=== PATIENT | male | born 1970 | race Caucasian/White ===

== ENCOUNTER → 2024-01-10 07:34 | Outpatient (REF) | payer BC, SELFPAY ==
[2024-01-10 09:19] LABS: % Basophils 0.7 % (0-2); % Eosinophils 1.5 % (0-6); % Immature Granulocytes 0.2 % (0-0.5); % Lymphocytes 46.8 % (20.5-51.1); % Monocytes 8.3 % (1.7-9.3); % Neutrophils 42.5 % (42.2-75.2); Absolute Eosinophils 0.1 10^3/uL (0-0.7); Absolute Lymphocytes 2.8 10^3/uL (1.2-3.4); Absolute Monocytes 0.5 10^3/uL (0.1-0.6); Absolute Neutrophils 2.5 10^3/uL (1.4-6.5); Hematocrit 46.3 % (39.0-52.0); Hemoglobin 15.2 g/dL (13.0-18.0); Mean Corp Hgb Conc. 32.8 g/dL (33.0-37.0); Mean Corpuscular Hgb 30.6 pg (27.0-31.0); Mean Corpuscular Volume 93.3 fL (80.0-94.0); Mean Platelet Volume 10.5 fL (7.4-10.4); Nucleated Red Blood Cells % 0 % (-); Platelet Count 251 10^3/uL (130-400); Red Blood Cell Count 4.96 10^6/uL (4.70-6.10); Red Cell Dist. Width 11.9 % (11.5-14.5); White Blood Cell Count 5.9 10^3/uL (4.8-10.8)
[2024-01-10 10:14] LABS: ALT (SGPT) 23 U/L (0-50); AST (SGOT) 27 U/L (17-59); Albumin 4.7 g/dl (3.5-5.0); Alkaline Phosphatase 46 U/L (38-126); Blood Urea Nitrogen 20 mg/dl (9-20); Calcium 9.9 mg/dl (8.4-10.2); Carbon Dioxide 30 mmol/L (22-30); Chloride 100 mmol/L (98-107); Glucose 90 mg/dl (70-99); HDL Cholesterol 73 mg/dl; LDL Cholesterol, Calculated 166 mg/dl; Potassium 4.6 mmol/L (3.5-5.1); Sodium 139 mmol/L (135-145); Total Bilirubin 0.8 mg/dl (0.2-1.3); Total Cholesterol 265 mg/dl (50-199); Total Protein 7.3 g/dl (6.3-8.2); Triglyceride 132 mg/dl (10-149); Very Low Density Lipoprotein 26 mg/dl (0-30); eGFR > 60.00
[2024-01-10 10:22] LABS: NT-proBNP 84.3 pg/ml
[2024-01-10 10:42] LABS: TSH Reflex To Free T4 2.85 uIU/ml (0.47-4.68)
== END ==
LOC: RCS 07:34
PROVIDERS: ATTENDING PHYSICIAN Internal Medicine Cardiovascular Disease; FAMILY PHYSICIAN Family Medicine
DX: I44.7 Left bundle-branch block, unspecified (principal); I42.8 Other cardiomyopathies; I42.9 Cardiomyopathy, unspecified
CPT/HCPCS: 36415; 80053; 80061; 83880; 84443; 85025; 93306

== ENCOUNTER → 2024-03-17 13:17 | Outpatient (REF) | payer BC, SELFPAY ==
[2024-03-17 15:06] LABS: PSA, Total - Screen 2.81 ng/ml (0.0-4.0)
== END ==
LOC: REG 13:17
PROVIDERS: ATTENDING PHYSICIAN Student in an Organized Health Care Education/Training Program
DX: Z00.00 Encounter for general adult medical examination without abnormal findings (principal); F32.A Depression, unspecified; K50.80 Crohn's disease of both small and large intestine without complications; Z12.11 Encounter for screening for malignant neoplasm of colon; Z12.12 Encounter for screening for malignant neoplasm of rectum
CPT/HCPCS: 36415; G0103

== ENCOUNTER → 2025-01-06 07:51 | Outpatient (REF) | payer BC, SELFPAY ==
[2025-01-06 09:24] LABS: % Basophils 0.9 % (0-2); % Eosinophils 1.2 % (0-6); % Immature Granulocytes 0.2 % (0-0.5); % Lymphocytes 42.2 % (20.5-51.1); % Monocytes 7.3 % (1.7-9.3); % Neutrophils 48.2 % (42.2-75.2); Absolute Basophils 0.1 10^3/uL (0-0.2); Absolute Eosinophils 0.1 10^3/uL (0-0.7); Absolute Lymphocytes 2.4 10^3/uL (1.2-3.4); Absolute Monocytes 0.4 10^3/uL (0.1-0.6); Absolute Neutrophils 2.8 10^3/uL (1.4-6.5); Hematocrit 46.4 % (39.0-52.0); Hemoglobin 15.7 g/dL (13.0-18.0); Mean Corp Hgb Conc. 33.8 g/dL (33.0-37.0); Mean Corpuscular Hgb 30.8 pg (27.0-31.0); Mean Corpuscular Volume 91.2 fL (80.0-94.0); Mean Platelet Volume 10.4 fL (7.4-10.4); Nucleated Red Blood Cells % 0 % (-); Platelet Count 258 10^3/uL (130-400); Red Blood Cell Count 5.09 10^6/uL (4.70-6.10); Red Cell Dist. Width 12.1 % (11.5-14.5); Reticulocyte Count 1.2 % (0.4-2.8); White Blood Cell Count 5.8 10^3/uL (4.8-10.8)
[2025-01-06 10:13] LABS: ALT (SGPT) 36 U/L (0-50); AST (SGOT) 34 U/L (17-59); Alkaline Phosphatase 55 U/L (38-126); Blood Urea Nitrogen 15 mg/dl (9-20); Calcium 10.3 mg/dl (8.4-10.2); Carbon Dioxide 29 mmol/L (22-30); Chloride 103 mmol/L (98-107); Glucose 94 mg/dl (70-99); Iron 123 ug/dl (49-181); Magnesium 2.1 mg/dl (1.6-2.3); Potassium 5.5 mmol/L (3.5-5.1); Sodium 141 mmol/L (135-145); Total Bilirubin 0.8 mg/dl (0.2-1.3); Total Protein 7.7 g/dl (6.3-8.2); eGFR > 60.00
[2025-01-06 10:22] LABS: Percent Saturation 41 % (20-50); Total Iron Binding Capacity 299 ug/dl (261-462)
[2025-01-06 10:44] LABS: C-Reactive Protein < 5.00 mg/L (0.0-10.00)
[2025-01-06 11:01] LABS: Vitamin B12 533 pg/ml (239-931)
[2025-01-06 11:02] LABS: Vitamin D, 25-OH*** 35.5 ng/mL (30-80)
[2025-01-06 11:06] LABS: Erythrocyte Sed Rate 10 mm/hour (0-20)
== END ==
LOC: REG 07:51
PROVIDERS: ATTENDING PHYSICIAN Internal Medicine Gastroenterology; FAMILY PHYSICIAN Family Medicine; REFERRING PHYSICIAN Physician Assistant Medical
DX: R53.83 Other fatigue (principal); D64.9 Anemia, unspecified; D50.9 Iron deficiency anemia, unspecified; D51.9 Vitamin B12 deficiency anemia, unspecified; E55.9 Vitamin D deficiency, unspecified; R19.01 Right upper quadrant abdominal swelling, mass and lump; R19.7 Diarrhea, unspecified
CPT/HCPCS: 36415; 80053; 82306; 82607; 82728; 83540; 83550; 83735; 85025; 85045; 85652; 86140

== ENCOUNTER 2025-04-13 16:00 | Emergency (ER) | payer BC, SELFPAY ==
[2025-04-13 16:10] VITALS: BP 126/88
[2025-04-13 16:17] LABS: Glucose - Point of Care 113 mg/dl (70-99)
[2025-04-13 16:23] LABS: Hematocrit 43.9 % (39.0-52.0); Hemoglobin 15.1 g/dL (13.0-18.0); Mean Corp Hgb Conc. 34.4 g/dL (33.0-37.0); Mean Corpuscular Volume 89.2 fL (80.0-94.0); Nucleated Red Blood Cells % 0 % (-); Platelet Count 244 10^3/uL (130-400); Red Cell Dist. Width 11.9 % (11.5-14.5)
[2025-04-13 16:36] LABS: ALT (SGPT) 21 U/L (0-50); AST (SGOT) 24 U/L (17-59); Albumin 4.8 g/dl (3.5-5.0); Alkaline Phosphatase 48 U/L (38-126); Blood Urea Nitrogen 16 mg/dl (9-20); Calcium 9.0 mg/dl (8.4-10.2); Carbon Dioxide 23 mmol/L (22-30); Chloride 107 mmol/L (98-107); Glucose 122 mg/dl (70-99); Potassium 3.8 mmol/L (3.5-5.1); Sodium 139 mmol/L (135-145); Total Protein 7.2 g/dl (6.3-8.2); eGFR > 60.00
[2025-04-13 16:48] LABS: Troponin I < 0.012 ng/ml
--- NOTE | 2025-04-13 17:37 | ED.GENMED ---
History of Present Illness
General
Chief Complaint: Weakness
Source: patient
Exam Limitations: none
Time Seen by Provider: 04/13/25 17:37
History of Present Illness
History of Present Illness:
55yoM with a history of cardiomyopathy with last EF 45%, LBBB, and Crohn's disease presenting for evaluation of dizziness. Patient reports intermittent episodes of dizziness for the past few months. He typically gets the dizziness every 2 weeks or
so. Episodes tend to occur while resting at work and do not occur with activity. He was at work today on a phone call when he started to feel faint and lightheaded. Patient went home early because he was not feeling well. Symptoms gradually
resolved and he developed a second episode of lightheadedness around 3:30 PM this evening again while he was sitting. He felt short of breath during second episode and had some sweating. He also felt confused transiently. These episodes can last
for several hours at a time. No associated seizure-like activity, syncope, chest pain, palpitations, incontinence, headache, vertiginous symptoms. 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
Past History
Past History
ED Past Medical History: Other (Crohn's disease, nonischemic cardiomyopathy, left bundle branch block)
ED Past Surgical History: None
Social History
Tobacco: Non-smoker
Alcohol: Occasional
Family History
Family History: CAD and Other (Alcoholism)
Phy Exam
General Physical Exam
General Presentation: well appearing and no apparent distress
General age: appears stated age
General Skin: warm and dry
General Habitus: normal
General Mental: alert
ENT Exam
ENT Exam: normocephalic
Cardiovascular Exam
Cardiovascular Exam: regular rate/rhythm, no edema and no murmur
Pulmonary Exam
Pulmonary Exam: lungs clear, no respiratory distress, no rales, no crackles, no rhonchi and no wheezing
Neurological Exam
Neurological Exam: alert and no motor deficits
[place] Coma Scale
Eye Opening: Spontaneous
Verbal Response: Oriented
Motor Response: Obeys Commands
GCS Total Score: 15
Skin Exam
Skin Exam: normal color and warm/dry
Psychiatric Exam
Psychiatric Exam: normal mood/affect
Course
Orders/Labs/Results
Orders:
Orders
04/13/25 16:01
EKG [Electrocardiogram (*1)] Urgent
Reason for Study: Vertigo / Dizzy
04/13/25 16:02
EKG- Treatment ONCE
04/13/25 16:17
Complete Blood Count/With Diff Urgent
Comprehensive Metabolic Panel Urgent
TSH Urgent
Comment: ADD ON
Troponin I Urgent
04/13/25 16:[address] [CT Head W/o Iv Contrast] Urgent
Comment:
Reason For Exam: confusion
04/13/25 18:00
Add On- LAB Urgent
Tests Added?: TSH
Cardiac Monitoring- Treatment ONCE
04/13/25 18:01
EKG- Treatment ONCE
04/13/25 18:14
D-Dimer Urgent
04/13/25 18:44
CR Chest - 2 Views Urgent
Comment:
Reason For Exam: SOB
04/13/25 19:00
Electrocardiogram (*1) Urgent
Reason for Study: Shortness of Breath
04/13/25 19:03
Troponin I Urgent
Abnormal Lab Results
04/13/25 04/13/25
16:16 16:17
Glucose 122 H mg/dl
(70-99)
POC Glucose 113 H mg/dl
(70-99)
04/13/25 16:17
04/13/25 16:17
Vital Signs
Initial and Last Documented VS:
Initial Vital Signs
Temp Pulse Resp BP Pulse Ox
97.8 F 82 16 126/88 97
04/13/25 16:10 04/13/25 16:10 04/13/25 16:10 04/13/25 16:10 04/13/25 16:10
Last Documented Vital Signs
Temp Pulse Resp BP Pulse Ox
97.8 F 59 20 114/88 96
04/13/25 16:10 04/13/25 19:45 04/13/25 19:45 04/13/25 20:36 04/13/25 20:45
MDM/Problems Addressed
Differential Diagnosis Includes:
55yoM here with intermittent episodes of lightheadedness x several months. Two episodes today. Was feeling SOB earlier and felt confused. Symptoms now resolved. He is A&O on exam with stable vital signs. Differential diagnosis includes: arrhythmia,
dehydration, ACS, PE
Initial ED plan: Workup initiated in triage. EKG shows a LBBB which is chronic and troponin WNL. Will check D-dimer, TSH, repeat troponin/EKG, CT head, and monitor on telemetry.
*Pulse Oximetry
SaO2: 93
Oxygen Mode of Delivery: Room air
Patient hypoxic: no (96%)
*EKG
Interpreted by ED Provider?: Yes
EKG Intrepretation Date: 04/13/25
Heart Rate: 68
Rate: normal
Rhythm: sinus
[place]: normal axis
QRS Pattern: left bundle branch block
Ischemia: no ischemia
*Critical Care Note
Total Time (30-74mins, 75-104mins- exclusive of procedures): Not Applicable
Update Note
Update Note:
D-dimer normal making PE very unlikely. CXR added which is normal. CT head negative. Repeat troponin/EKG unchanged. No telemetry events noted. Patient remains asymptomatic on reassessment and has not had any dizziness since arrival to the ED.
Unclear etiology of symptoms. He has an appt scheduled with his engine lathe operator tomorrow. ED return precautions reviewed. Patient discharged in stable condition.
ED Attending Note
-
Portions of this chart may have been created with voice recognition software.� Occasional wrong word or��sound alike� substitutions may have occurred due to the inherent limitations of voice recognition software.
Discharge Plan
Departure
Patient Disposition: Home (Routine Discharge)
Date of Disposition: 04/13/25
Time of Disposition: 20:39
Patient with high blood pressure during this ER visit?: No
Discharge Problem:
Lightheadedness
Instructions: Dizziness in adults - ED discharge instructions
Prescriptions:
No Action
buspirone 5 MG tablet
5 mg PO BID
sucralfate [Carafate] 1 GM tablet
1 gm PO BID
famotidine 20 MG tablet
20 mg PO BID
lisinopril 2.5 MG tablet
2.5 mg PO HS
mesalamine [Pentasa] 500 MG capsule, extended release
1,000 mg PO QID
cholecalciferol (vitamin D3) 2,000 UNITS tablet
50,000 unit PO .2X WEEKLY
desvenlafaxine 100 mg tablet extended release 24 hr
100 mg PO DAILY Qty: 90 0RF
Rx Instructions:
take with food
lisinopril 2.5 mg tablet
2.5 mg PO HS Qty: 90 0RF
desvenlafaxine 50 mg tablet extended release 24 hr
50 mg PO DAILY Qty: 180 1RF
Rx Instructions:
take 2 tablets daily x 2 months, then one tablet daily
desvenlafaxine succinate 25 mg tablet extended release 24 hr
25 mg PO DAILY Qty: 30 0RF
Referrals:
Igor Paniagua MD [Family Provider, Family Practice]
Activity Restrictions/Additional Instructions:
Please follow-up with your engine lathe operator tomorrow as scheduled. Return to the ER immediately with any new or worsening symptoms.
Interventions
Interventions:
*Risk Screen - Suicide Last Done: 04/13/25 16:10
*General Assessment Last Done: 04/13/25 18:16
*Neglect/Abuse Screening Last Done: 04/13/25 16:10
*ED- Fall Risk Assessment Last Done: 04/13/25 18:16
*ED COVID-19 Vaccine History Last Done: 04/13/25 18:16
*Nursing Disposition Last Done: 04/13/25 20:53
ED- Pulmonary Assessment Last Done: 04/13/25 18:16
ED- Neurological Assessment Last Done: 04/13/25 18:16
ED- Cardiac Assessment Last Done: 04/13/25 18:16
Discharge Date and Time
Discharge Date/Time: 04/13/25 20:55
Print Language: GREEK
[2025-04-13 18:37] LABS: D-Dimer < 0.27 ug/mlFEU (0.00-0.50)
[2025-04-13 19:00] VITALS: BP 109/72
[2025-04-13 19:09] LABS: TSH 2.45 uIU/ml (0.47-4.68)
[2025-04-13 19:40] LABS: Troponin I < 0.012 ng/ml
[2025-04-13 20:36] VITALS: BP 114/88
== END 2025-04-13 20:55 | disposition home or self-care (01) ==
LOC: EMR 16:00
PROVIDERS: Physician Assistant; EMERGENCY PHYSICIAN Student in an Organized Health Care Education/Training Program; FAMILY PHYSICIAN Family Medicine
DX: R53.1 Weakness (principal); I42.9 Cardiomyopathy, unspecified; I44.7 Left bundle-branch block, unspecified; K50.90 Crohn's disease, unspecified, without complications; Z82.49 Family history of ischemic heart disease and other diseases of the circulatory system
CPT/HCPCS: 99284; 70450; 71046; 80053; 82962; 84443; 84484; 85025; 85379; 93005

== ENCOUNTER → 2025-04-27 15:05 | Outpatient (REF) | payer BC, SELFPAY ==
[2025-04-27 16:39] LABS: Cortisol, Random 4.0 ug/dl
[2025-04-27 17:14] LABS: Folate 11.2 ng/ml (2.76-20)
[2025-05-01 13:49] LABS: Vitamin B1, Whole Blood 175 nmol/L (70-180)
[2025-05-03 08:00] LABS: 5HIAA, Urine 3.3 mg/L; 5HIAA/Creatinine Ratio 2 mg/gCR (0-14); Creatinine, Urine per Volume 141 mg/dL; VMA, Urine per Volume 5.3 mg/L
== END ==
LOC: REG 15:05
PROVIDERS: ATTENDING PHYSICIAN Internal Medicine Cardiovascular Disease; FAMILY PHYSICIAN Family Medicine
DX: R42 Dizziness and giddiness (principal); R06.02 Shortness of breath; R47.81 Slurred speech
CPT/HCPCS: 36415; 82384; 82533; 82746; 83497; 84425; 84585

== ENCOUNTER → 2025-04-30 15:55 | Outpatient (REF) | payer BC, SELFPAY | LOC: RCS 15:55 | PROVIDERS: ATTENDING PHYSICIAN Physician Assistant; FAMILY PHYSICIAN Family Medicine | DX: I44.7 Left bundle-branch block, unspecified (principal); I42.8 Other cardiomyopathies; R06.02 Shortness of breath | CPT/HCPCS: 93306 ==

== ENCOUNTER → 2025-06-09 14:35 | Outpatient (REF) | payer BC, SELFPAY ==
[2025-06-09 16:53] LABS: Vitamin D, 25-OH*** 33.7 ng/mL (30-80)
[2025-06-10 16:43] LABS: Lyme Antibody Screen, EIA Negative (Negative)
== END ==
LOC: REG 14:35
PROVIDERS: ATTENDING PHYSICIAN Physician Assistant Medical; FAMILY PHYSICIAN Family Medicine; OTHER PHYSICIAN Internal Medicine Gastroenterology; REFERRING PHYSICIAN Internal Medicine Critical Care Medicine
DX: A69.23 Arthritis due to Lyme disease (principal); W57.XXXA Bitten or stung by nonvenomous insect and other nonvenomous arthropods, initial encounter; R53.83 Other fatigue; E83.19 Other disorders of iron metabolism; K50.80 Crohn's disease of both small and large intestine without complications
CPT/HCPCS: 36415; 81256; 82306; 84270; 84402; 84403; 84443; 86618; 86644; 86645; 86663; 86664; 86665; 87497

== ENCOUNTER → 2025-07-07 15:11 | Outpatient (REF) | payer BC, SELFPAY | LOC: MRI 3T 15:11 | PROVIDERS: ATTENDING PHYSICIAN Internal Medicine Cardiovascular Disease; FAMILY PHYSICIAN Student in an Organized Health Care Education/Training Program | DX: R47.81 Slurred speech (principal); R42 Dizziness and giddiness; R06.02 Shortness of breath | CPT/HCPCS: 70549; 70553; A9575 ==

== ENCOUNTER → 2025-07-21 08:07 | Outpatient (REF) | payer BC, SELFPAY ==
[2025-07-23 14:22] LABS: SSA 52 (Ro)(ENA) Ab, IgG 2 AU/mL (0-40); SSA 60 (Ro)(ENA) Ab, IgG 0 AU/mL (0-40); SSB (La)(ENA) Ab, IgG 0 AU/mL (0-40)
[2025-07-23 22:16] LABS: ANA, IgG Reflex to HEp-2 None Detected (None Detected)
== END ==
LOC: REG 08:07
PROVIDERS: ATTENDING PHYSICIAN Nurse Practitioner; FAMILY PHYSICIAN Family Medicine
DX: R53.1 Weakness (principal); R20.0 Anesthesia of skin; R20.2 Paresthesia of skin
CPT/HCPCS: 36415; 82085; 82550; 85652; 86038; 86041; 86235

== ENCOUNTER 2025-08-09 06:26 | Day surgery (SDC) | payer BC, SELFPAY | END 2025-08-09 14:21 | disposition home or self-care (01) | LOC: GI 06:26 | PROVIDERS: ATTENDING PHYSICIAN Internal Medicine Gastroenterology | DX: K50.80 Crohn's disease of both small and large intestine without complications (principal); K63.5 Polyp of colon; K63.89 Other specified diseases of intestine; K52.89 Other specified noninfective gastroenteritis and colitis | CPT/HCPCS: 45380; 88305 ==

== ENCOUNTER → 2025-09-04 10:38 | Outpatient (REF) | payer BC, SELFPAY | LOC: REG 10:38 | PROVIDERS: ATTENDING PHYSICIAN Internal Medicine Gastroenterology; FAMILY PHYSICIAN Family Medicine | DX: E83.19 Other disorders of iron metabolism (principal); K50.80 Crohn's disease of both small and large intestine without complications | CPT/HCPCS: 83993 ==

== ENCOUNTER → 2025-10-08 10:27 | Outpatient (REF) | payer BC, SELFPAY ==
[2025-10-08 11:24] LABS: Hematocrit 47.5 % (39.0-52.0); Hemoglobin 16.1 g/dL (13.0-18.0); Mean Corp Hgb Conc. 33.9 g/dL (33.0-37.0); Mean Corpuscular Volume 90.1 fL (80.0-94.0); Nucleated Red Blood Cells % 0 % (-); Platelet Count 251 10^3/uL (130-400); Red Cell Dist. Width 11.8 % (11.5-14.5)
[2025-10-08 12:10] LABS: Glycohemoglobin (HgbA1c) 5.6 % (4.0-5.9)
[2025-10-08 13:01] LABS: ALT (SGPT) 37 U/L (0-50); AST (SGOT) 37 U/L (17-59); Albumin 5.0 g/dl (3.5-5.0); Alkaline Phosphatase 49 U/L (38-126); Blood Urea Nitrogen 19 mg/dl (9-20); Calcium 9.9 mg/dl (8.4-10.2); Carbon Dioxide 27 mmol/L (22-30); Chloride 103 mmol/L (98-107); Glucose 95 mg/dl (70-99); HDL Cholesterol 62 mg/dl; LDL Cholesterol, Calculated 178 mg/dl; Potassium 4.7 mmol/L (3.5-5.1); Sodium 138 mmol/L (135-145); Total Protein 7.8 g/dl (6.3-8.2); Very Low Density Lipoprotein 20 mg/dl (0-30); eGFR > 60.00
[2025-10-08 13:25] LABS: PSA, Total - Screen 2.71 ng/ml (0.0-4.0)
== END ==
LOC: REG 10:27
PROVIDERS: ATTENDING PHYSICIAN Family Medicine
DX: Z00.01 Encounter for general adult medical examination with abnormal findings (principal); R53.83 Other fatigue; H53.9 Unspecified visual disturbance
CPT/HCPCS: 36415; 80053; 80061; 83036; 85025; 86618; G0103